=== PATIENT | female | born 1945 | race Caucasian/White ===

== ENCOUNTER 2018-02-25 14:58 | Emergency (ER) | payer MEDICARE, OTHER ==
[~2018-02-25] VITALS: Ht 162.6 cm; Wt 112.0 kg
[2018-02-25 15:03] VITALS: BP 112/77
[2018-02-25] MEDS ORDERED: Isovue-300 100ml vial INJ PRN (15:15)
[2018-02-25 15:35] LABS: BASOPHILS % (AUTO) 0.8 % (0.0-2.0); EOSINOPHILS % (AUTO) 0.9 % (0.0-3.0); HEMATOCRIT 49.1 % (37.0-47.0); HEMOGLOBIN 16.6 G/DL (12.0-16.0); LYMPHOCYTES % (AUTO) 21.7 % (20.0-45.0); MEAN CORPUSCULAR VOLUME 88 FL (80-99); MONOCYTES % (AUTO) 9.1 % (1.0-10.0); NEUTROPHILS % (AUTO) 67.6 % (45.0-75.0); PLATELET COUNT 258 K/UL (150-450); RED CELL DISTRIBUTION WIDTH 11.8 % (11.6-14.8); WHITE BLOOD COUNT 8.9 K/UL (4.8-10.8)
--- NOTE | 2018-02-25 15:38 | Emergency Room Report ---
History of Present Illness General Chief Complaint: Abdominal Pain Source: Patient, Medical Record Present Illness HPI This patient complains of epigastric abdominal pain for the past 3 days and generalized weakness. She denies nausea or vomiting. She denies fever or chills. She denies dysuria or hematuria. She denies diarrhea. She has no other complaints. Allergies: Coded Allergies: LIRAGLUTIDE (Unverified Allergy, Unknown, 02/25/18) LORAZEPAM (Unverified Allergy, Unknown, 02/25/18) METFORMIN (Unverified Allergy, Unknown, 02/25/18) Patient History Past Medical History: see triage record, DM, HTN, GERD, other - goiter Social History: Denies: smoking, alcohol use, drug use Reviewed Nursing Documentation: PMH: Agreed; PSxH: Agreed Nursing Documentation-PMH Past Medical History: No History, Except For Hx Hypertension: Yes Hx Diabetes: Yes - diabetic sensory polyneuropathy, gastropathy Review of Systems All Other Systems: negative except mentioned in HPI Physical Exam Vital Signs Date Time Temp Pulse Resp B/P (MAP) Pulse Ox O2 Delivery O2 Flow Rate FiO2 02/25/18 14:53 98.1 88 16 106/67 96 Room Air Sp02 EP Interpretation: reviewed, normal General Appearance: no apparent distress, alert, GCS 15, non-toxic, obese Head: normocephalic, atraumatic Eyes: bilateral eye normal inspection, bilateral eye PERRL ENT: hearing grossly normal, normal pharynx, no angioedema, normal voice Neck: full range of motion, supple/symm/no masses Respiratory: chest non-tender, lungs clear, normal breath sounds, no respiratory distress, no retraction, no accessory muscle use, speaking full sentences Cardiovascular #1: regular rate, rhythm, no edema Gastrointestinal: normal bowel sounds, soft, non-distended, no guarding, no rebound, tenderness - Diffusely ttp Rectal: deferred Musculoskeletal: back normal, gait/station normal, normal range of motion, non- tender Neurologic: alert, oriented x3, responsive, motor strength/tone normal, sensory intact, speech normal Psychiatric: judgement/insight normal, memory normal, mood/affect normal, no suicidal/homicidal ideation Skin: normal color, no rash, warm/dry, well hydrated Medical Decision Making Diagnostic Impression: Primary Impression: Epigastric pain Additional Impression: Gastritis ER Course This patient has a clinical presentation consistent with gastritis. The location of the pain and history and physical examination is consistent with this. I considered other concerning differentials, to include appendicitis, cholelithiasis, cholecystitis, pancreatitis, perforated viscus, aortic aneurysm , and pyelonephritis to name a few. However, laboratory workup in combination with medical and surgical history and physical exam makes these unlikely at this time. CT of the abdomen and pelvis is also negative which is reassuring, although there was a possible punctate calcification in the GB neck. US of the GB did not identify this. I will start the patient on gastritis treatment. The patient was given a printout of her CT abdomen and pelvis report so that she can show her primary care physician and get follow-up on the incidental findings found there. Patient was instructed to follow-up closely with her primary care physician. I did educate the patient on close return precautions and followup instructions. Laboratory Tests Test 02/25/18 15:20 02/25/18 16:00 White Blood Count 8.9 K/UL (4.8-10.8) Red Blood Count 5.60 M/UL (4.20-5.40) H Hemoglobin 16.6 G/DL (12.0-16.0) H Hematocrit 49.1 % (37.0-47.0) H Mean Corpuscular Volume 88 FL (80-99) Mean Corpuscular Hemoglobin 29.6 PG (27.0-31.0) Mean Corpuscular Hemoglobin Concent 33.8 G/DL (32.0-36.0) Red Cell Distribution Width 11.8 % (11.6-14.8) Platelet Count 258 K/UL (150-450) Mean Platelet Volume 7.5 FL (6.5-10.1) Neutrophils (%) (Auto) 67.6 % (45.0-75.0) Lymphocytes (%) (Auto) 21.7 % (20.0-45.0) Monocytes (%) (Auto) 9.1 % (1.0-10.0) Eosinophils (%) (Auto) 0.9 % (0.0-3.0) Basophils (%) (Auto) 0.8 % (0.0-2.0) Sodium Level 140 MMOL/L (136-145) Potassium Level 3.6 MMOL/L (3.5-5.1) Chloride Level 102 MMOL/L (98-107) Carbon Dioxide Level 27 MMOL/L (21-32) Anion Gap 11 mmol/L (5-15) Blood Urea Nitrogen 11 mg/dL (7-18) Creatinine 1.1 MG/DL (0.55-1.30) Estimate Glomerular Filtration Rate mL/min (>60) Glucose Level 196 MG/DL (74-106) H Calcium Level 9.3 MG/DL (8.5-10.1) Total Bilirubin 0.6 MG/DL (0.2-1.0) Aspartate Amino Transferase (AST) 23 U/L (15-37) Alanine Aminotransferase (ALT) 25 U/L (12-78) Alkaline Phosphatase 66 U/L (46-116) Total Protein 7.1 G/DL (6.4-8.2) Albumin 3.4 G/DL (3.4-5.0) Globulin 3.7 g/dL Albumin/Globulin Ratio 0.9 (1.0-2.7) L Lipase 104 U/L (73-393) Urine Color Pending Urine Appearance Pending Urine pH Pending Urine Specific Nickerson Pending Urine Protein Pending Urine Glucose (UA) Pending Urine Ketones Pending Urine Blood Pending Urine Nitrite Pending Urine Bilirubin Pending Urine Urobilinogen Pending Urine Leukocyte Esterase Pending CT/MRI/US Diagnostic Results CT/MRI/US Diagnostic Results : Imaging Test Ordered: CT abd/pelvis, US abdomen Impression See official report for incidental findings. There was a question of a punctate gallstone in the region of the gallbladder neck. 1.7 cm adrenal mass. Ultrasound right upper quadrant: No obvious abnormal gallbladder findings although imaging was limited. Last Vital Signs Date Time Temp Pulse Resp B/P (MAP) Pulse Ox O2 Delivery O2 Flow Rate FiO2 02/25/18 15:03 88 16 Room Air 02/25/18 15:03 98.1 112/77 96 Status: improved Disposition: HOME, SELF-CARE Condition: Improved Nia Izaguirre DO Feb 25, 2018 15:38
[2018-02-25 15:42] LABS: ANION GAP 11 mmol/L (5-15); BLOOD UREA NITROGEN 11 mg/dL (7-18); CALCIUM 9.3 MG/DL (8.5-10.1); CARBON DIOXIDE 27 MMOL/L (21-32); CHLORIDE 102 MMOL/L (98-107); CREATININE 1.1 MG/DL (0.55-1.30); POTASSIUM 3.6 MMOL/L (3.5-5.1); SODIUM 140 MMOL/L (136-145)
[2018-02-25 15:48] LABS: ALANINE AMINOTRANSFERASE 25 U/L (12-78); ALBUMIN 3.4 G/DL (3.4-5.0); ALBUMIN/GLOBULIN RATIO 0.9 (1.0-2.7); ALKALINE PHOSPHATASE 66 U/L (46-116); ASPARTATE AMINO TRANSFERASE 23 U/L (15-37); BILIRUBIN,TOTAL 0.6 MG/DL (0.2-1.0)
[2018-02-25] MEDS ORDERED: Lidocaine 2% Visc 15ml soln ORAL ONE (16:15)
[2018-02-25 16:28] LABS: APPEARANCE,URINE CLEAR; BILIRUBIN, URINE NEGATIVE (NEGATIVE); GLUCOSE, URINE (UA) NEGATIVE (NEGATIVE); KETONES,URINE 1+ (NEGATIVE); LEUKOCYTE ESTERASE ,URINE 1+ (NEGATIVE); NITRITE,URINE NEGATIVE (NEGATIVE); PH,URINE 8 (4.5-8.0); PROTEIN,URINE 2+ (NEGATIVE); UROBILINOGEN,URINE NORMAL MG/DL (0.0-1.0)
[2018-02-25 16:35] LABS: COLOR,URINE YELLOW
[2018-02-25 17:00] VITALS: BP 125/80
[2018-02-25 18:59] VITALS: BP 121/81
[2018-02-25] MEDS ORDERED: HYDROXYZINE HCL10 M1 PO (19:21)
[2018-02-25] MEDS ORDERED: LUNESTA3 MG ORAL (19:21)
[2018-02-25] MEDS ORDERED: ARTHROTEC 75 M1 EACH PO (19:21)
[2018-02-25] MEDS ORDERED: LEXAPRO20 MG ORAL (19:21)
[2018-02-25] MEDS ORDERED: LATUDA40 MG PO (19:21)
[2018-02-25] MEDS ORDERED: FUROSEMIDE40 MG ORAL (19:21)
[2018-02-25] MEDS ORDERED: KLOR-CON 88 MEQ ORAL (19:21)
[2018-02-25] MEDS ORDERED: CAPTOPRIL50 MG PO (19:21)
[2018-02-25] MEDS ORDERED: LABETALOL HCL100 MG ORAL (19:21)
[2018-02-25] MEDS ORDERED: HUMALOG KW200 UNIT/1 SQ (19:21)
[2018-02-25] MEDS ORDERED: EDARBYCLOR 40-1 EAC1 ORAL (19:21)
[2018-02-25] MEDS ORDERED: CRESTOR10 M2 ORAL (19:21)
[2018-02-25] MEDS ORDERED: JANUVIA25 MG ORAL (19:21)
[2018-02-25] MEDS ORDERED: AMBIEN10 M1 ORAL (19:21)
[2018-02-25] MEDS ORDERED: NUVIGIL200 MG PO (19:23)
[2018-02-25] MEDS ORDERED: NEXIUM40 MG ORAL (19:23)
[2018-02-25] MEDS ORDERED: REMERON30 MG ORAL (19:23)
[2018-02-25] MEDS ORDERED: MECLIZINE HCL25 MG ORAL (19:23)
[2018-02-25] MEDS ORDERED: METFORMIN HCL1000 M1 ORAL (19:23)
[2018-02-25] MEDS ORDERED: SEROQUEL200 MG ORAL (19:23)
[2018-02-25] MEDS ORDERED: TERAZOSIN HCL1 MG ORAL (19:25)
[2018-02-25] MEDS ORDERED: TRICON CAPSULE1 EACH PO (19:25)
[2018-02-25] MEDS ORDERED: VITAMIN D35000 UNI2 PO (19:25)
[2018-02-25] MEDS ORDERED: TOPIRAMATE100 MG ORAL (19:25)
[2018-02-25] MEDS ORDERED: XANAX2 MG ORAL (19:25)
[2018-02-25] MEDS ORDERED: TRESIBA FL100 UNIT/1 SQ (19:25)
[2018-02-25] MEDS ORDERED: RANITIDINE HCL150 MG ORAL (22:19)
[2018-02-25 23:00] VITALS: BP 109/78
[2018-02-25 23:10] VITALS: BP 109/78
--- NOTE | 2018-02-26 09:36 | Diagnostic Imaging Report ---
Clinical Indication: Abdominal pain Technique: No oral contrast utilized, per emergency room physician request IV administration nonionic contrast. Venous phase spiral acquisition obtained through the abdomen and pelvis. Multiplanar reconstructions were generated. Total dose length product 915.48 mGycm. CTDIvol(s) 18.84 mGy. Dose reduction achieved using automated exposure control Comparison: none Findings: There are a few small proximal sigmoid diverticula. No evidence of diverticulitis. There is equivocal thickening of the wall of the proximal transverse colon, more likely an artifact of under distention. The appendix is normal. No small bowel distention. No free or loculated intraperitoneal gas or fluid is evident. The distal esophagus, stomach, duodenum are unremarkable. The liver demonstrates a cyst in segment 4A. No other focal abnormality. The gallbladder, bile ducts, pancreas, spleen are unremarkable. There is an ill-defined 28 x 16 mm mass in the left adrenal. The right adrenal is unremarkable. The kidneys are unremarkable. No retroperitoneal or mesenteric mass or adenopathy. No pelvic mass or adenopathy. The uterus is atrophic. Irregular scarring is seen at the right lung base. Atelectatic changes are seen at the left lung base. The bones demonstrate degenerative spondylosis changes. Impression: Equivocal slight wall thickening of the proximal transverse colon, more likely artifact of under distention but colitis not completely excludable. Correlate with clinical findings Colonic diverticulosis. No evidence of diverticulitis Left adrenal mass. Recommend further evaluation with adrenal protocol CT Basilar pulmonary parenchymal atelectasis and scarring Though findings as noted, including degenerative spondylosis changes, left lobe liver cyst This agrees with the preliminary interpretation provided overnight by [facility] teleradiology service. The CT scanner at [facility] is accredited by the [employer] and the scans are performed using protocols designed to limit radiation exposure to as low as reasonably achievable to attain images of sufficient resolution adequate for diagnostic evaluation.
== END 2018-02-25 23:26 | disposition home or self-care (01) ==
LOC: EDBD 14:58 → EMR 16:35
DX: K29.70 Gastritis, unspecified, without bleeding (principal); I10 Essential (primary) hypertension; E11.42 Type 2 diabetes mellitus with diabetic polyneuropathy; K21.9 Gastro-esophageal reflux disease without esophagitis; Z88.8 Allergy status to other drugs, medicaments and biological substances
CPT/HCPCS: 36415; 74177; 80053; 81003; 83690; 85025; 96361; 96374; 99284; Q9967; S0028